=== PATIENT | male | born 1980 | race Caucasian/White ===

== ENCOUNTER 2017-05-08 18:08 | Emergency (ER) | payer OTHER ==
[2017-05-08 18:12] VITALS: BP 140/75; PULSE 69; TEMP 98; BMI 37.3
--- NOTE | 2017-05-08 18:41 | PDOC ---
History of Present Illness - General Chief Complaint: Pain Stated Complaint: LT KNEE PAIN Time Seen by Provider: 05/08/17 18:19 History Source: Patient Exam Limitations: No Limitations - History of Present Illness Initial Comments: 05/08/17 18:42 37-year-old male presents t0 the emergency room for complaints of left knee pain intermittently for the past week. Patient states was lifting a box while at work when symptoms began. Patient states pain is worsened after prolonged sitting and walking. Patient states area feels warm by the end the evening. Patient does state has taken Motrin with good effect. Patient denies swelling to the area, previous injury to the affected area, or radiation of pain. Timing/Duration: 1 week Severity: mild Associated Symptoms: reports: denies symptoms Past History - Travel Traveled outside of the country in the last 30 days: No Close contact w/someone who was outside of country & ill: No - Past Medical History Allergies/Adverse Reactions: Allergies Allergy/AdvReac Type Severity Reaction Status Date / Time No Known Allergies Allergy Verified 05/08/17 18:12 Home Medications: Ambulatory Orders NK [No Known Home Medication] 11/07/15 Hypercholesterolemia: Yes - Surgical History Cholecystectomy: Yes - Immunization History Immunization Up to Date: Yes - Psycho/Social/Smoking Cessation Hx Anxiety: No Suicidal Ideation: No Smoking Status: Yes Smoking History: Former smoker Have you smoked in the past 12 months: No Number of Cigarettes Smoked Daily: 6 If you are a former smoker, when did you quit?: 2017 Information on smoking cessation initiated: No 'Breaking Loose' booklet given: 09/25/15 Hx Alcohol Use: No Drug/Substance Use Hx: No Substance Use Type: None Patient Lives Alone: No Lives with/in: spouse/SO Review of Systems - Review of Systems Able to Perform ROS?: No Constitutional: No: Symptoms Reported Musculoskeletal: Yes: Joint Pain Integumentary: No: Symptoms Reported Neurological: No: Symptoms reported *Physical Exam - Vital Signs Last Vital Signs Temp Pulse Resp BP Pulse Ox 98 F 69 19 140/75 99 05/08/17 18:10 05/08/17 18:10 05/08/17 18:10 05/08/17 18:10 05/08/17 18:10 - Physical Exam General Appearance: Yes: Nourished, Appropriately Dressed. No: Apparent Distress Extremity: positive: Normal Capillary Refill, Normal Inspection, Normal Range of Motion, Tender (over the left meniscus ) Integumentary: positive: Normal Color, Warm, Moist Neurologic: positive: Motor Strength 5/5 (ambulatory) Medical Decision Making - Medical Decision Making 05/08/17 18:46 Patient with injury to left knee. Patient exam had tenderness over the left meniscus. Patient ordered for Pola wrap and given supportive care instructions. Have also given patient a referral to orthopedist. *DC/Admit/Observation/Transfer Diagnosis at time of Disposition: Meniscal injury Qualifiers: Encounter type: initial encounter Laterality: left Qualified Code(s): S83.8X2A - Sprain of other specified parts of left knee, initial encounter - Discharge Dispostion Disposition: HOME Condition at time of disposition: Good - Referrals Referrals: Anoop Carmen MD [Staff Physician] - - Patient Instructions Printed Discharge Instructions: DI for Meniscal Tear Additional Instructions: I'm enclosed information on a meniscal tear. Please use the pola wrap during day and remove at night. Please apply ice as much as he can tolerate for the next 5 days and take Motrin every 6-8 hours for inflammation and discomfort
== END 2017-05-08 18:57 | disposition home or self-care (01) ==
LOC: JERFT 18:08 → JER 18:08 → JERFT 18:57
DX: S83.8X2A Sprain of other specified parts of left knee, initial encounter (principal); X58.XXXA Exposure to other specified factors, initial encounter; Y93.89 Activity, other specified; Y92.9 Unspecified place or not applicable; E78.00 Pure hypercholesterolemia, unspecified; Z87.891 Personal history of nicotine dependence
CPT/HCPCS: 99281-25

== ENCOUNTER 2021-08-21 09:54 | Emergency (ER) | payer OTHER ==
[2021-08-21 09:59] VITALS: BMI 33.0
[2021-08-21 11:49] LABS: BASO % 0.9 % (0-2.0); EOS % 3.1 % (0-4.5); HEMATOCRIT 43.9 % (35.4-49); HEMOGLOBIN 14.9 GM/dL (11.7-16.9); MEAN CELL VOLUME 91.1 fl (80-96); MEAN PLT VOLUME 8.2 fl (7.5-11.1); MONO % 5.2 % (3.8-10.2); NEUT % 64.8 % (42.8-82.8); PLATELET COUNT 242 10^3/uL (134-434); RBC 4.82 M/mm3 (4.00-5.60); RDW 13.7 % (11.9-15.9); WHITE BLOOD COUNT 7.6 K/mm3 (4.0-10.0)
[2021-08-21 12:06] LABS: CHLORIDE 108 mmol/L (98-107); SODIUM 141 mmol/L (136-145)
[2021-08-21 12:08] LABS: CALCIUM 8.7 mg/dL (8.5-10.1); INR 0.92 (0.83-1.09); PROTHROMBIN TIME (PATIENT) 10.7 SEC (9.7-13.0)
[2021-08-21 12:09] LABS: ALBUMIN 4.1 g/dl (3.4-5.0); ANION GAP 3 MMOL/L (8-16); BLOOD UREA NITROGEN 8.3 mg/dL (7-18); CO2 30 mmol/L (21-32); GLUCOSE,RANDOM 87 mg/dL (74-106)
[2021-08-21 12:10] LABS: MAGNESIUM 2.1 mg/dL (1.8-2.4)
[2021-08-21 12:11] LABS: ACTIVATED PTT 32.7 SECONDS (25.2-36.5)
[2021-08-21 12:12] LABS: CHOLESTEROL 240 mg/dL (50-200); CREATININE 0.8 mg/dL (0.55-1.3); SGOT/AST 19 U/L (15-37); SGPT/ALT 25 U/L (13-61)
[2021-08-21 12:13] LABS: BILIRUBIN,TOTAL 0.6 mg/dL (0.2-1); TRIGLYCERIDES 125 mg/dL (0-150)
[2021-08-21 12:14] LABS: TOT PROT 7.4 g/dl (6.4-8.2)
[2021-08-21 12:15] LABS: ALK PHOS 59 U/L (45-117); HDL CHOLESTEROL 45 mg/dL (40-60)
[2021-08-21 12:22] LABS: LDL CHOLESTEROL (ONLY SJRH) 152 mg/dL (5-100)
[2021-08-21 16:46] VITALS: BP 131/78; PULSE 68; TEMP 98.1
== END 2021-08-21 16:47 | disposition short-term general hospital (02) ==
LOC: JER 09:54
DX: H54.7 Unspecified visual loss (principal)
CPT/HCPCS: 36415; 70450-TC; 76512; 80053; 80061; 83735; 84484; 85025; 85610; 85730; 86850; 86900; 86901; 93005; 93010; 99284-25; C9803; U0003; U0005